=== PATIENT | female | born 1930 | race Caucasian/White ===

== ENCOUNTER 2017-04-15 10:32 | Inpatient (IN) | payer OTHER, MEDICAID ==
[~2017-04-15] VITALS: Ht 162.6 cm; Wt 65.0 kg
[2017-04-15] MEDS ORDERED: SODIUM CHLORIDE 0.9% 1,000 ML IV ONE ×2 (10:35→13:30)
[2017-04-15] MEDS ORDERED: IOVERSOL 350 MG/ML 100 ML VIAL ONE (11:03)
[2017-04-15 12:02] LABS: APPEARANCE,URINE TURBID (CLEAR); GLUCOSE, URINE (UA) NEGATIVE (NEGATIVE); KETONES,URINE NEGATIVE (NEGATIVE); LEUKOCYTE ESTERASE ,URINE LARGE (NEGATIVE); OCCULT BLOOD,URINE SMALL (NEGATIVE); PROTEIN,URINE SEE CONFIRM (NEGATIVE)
[2017-04-15 12:03] LABS: ADD UA MICROSCOPIC YES
[2017-04-15 12:06] LABS: BASOPHILS % (AUTO) 0.1 % (0.0-2.0); EOSINOPHILS % (AUTO) 0 % (1.0-6.0); HEMATOCRIT 29.4 % (36-46); HEMOGLOBIN 9.9 g/dL (12.0-16.0); LYMPHOCYTES # (AUTO) 1.7 K/uL (1.0-4.8); LYMPHOCYTES % (AUTO) 17.4 % (22.0-44.0); MEAN CORPUSCULAR HEMOGLOBIN 29.2 pg (26.0-34.0); MEAN CORPUSCULAR HGB CONC 33.5 G/dL (31.0-37.0); MEAN CORPUSCULAR VOLUME 87 fL (80-100); MONOCYTES # (AUTO) 0.1 K/uL (0.1-1.0); MONOCYTES % (AUTO) 1.3 % (2.0-9.0); NEUTROPHILS % (AUTO) 81.2 % (40.0-70.0); RED BLOOD CELL COUNT(AUTO) 3.37 MIL/uL (4.00-5.20); RED CELL DISTRIBUTION WIDTH 16.3 % (11.5-14.5); WHITE BLOOD COUNT (AUTO) 9.8 K/uL (4.5-11.0)
[2017-04-15 12:13] LABS: INR 1.3 (0.9-1.1); PROTHROMBIN TIME 13.2 SEC (9.4-11.6)
[2017-04-15] MEDS ORDERED: CefTRIAXone 1 GM/DEXTROSE 50 ML IV ONE (12:15)
[2017-04-15 12:23] LABS: ANION GAP 15 mmol/L (8-16); CALCIUM, TOTAL 8.8 mg/dL (8.8-10.5); CARBON DIOXIDE 17 mmol/L (22-29); CHLORIDE 100 mmol/L (98-107); CREATININE 2.51 mg/dL (0.60-1.30); GLOMERULAR FILTR. RATE CALC 18 mL/min (>60); SODIUM SERUM 132 mmol/L (136-145); UREA NITROGEN, BLOOD 42 mg/dL (7-18)
[2017-04-15 12:27] LABS: SULFOSALICYLIC ACID,URINE 3+ (Negative)
[2017-04-15 12:29] LABS: RBC,URINE 0-2 /HPF (0-2)
[2017-04-15 12:30] LABS: WBC,URINE 51-100 /HPF (0-5)
[2017-04-15 12:31] LABS: SQUAMOUS EPITHELIAL CELL,UR Few /LPF (None Seen)
[2017-04-15 12:42] LABS: PLATELET COUNT (AUTO) 88 K/uL (150-450)
[2017-04-15 12:49] LABS: ALANINE AMINOTRANSFERASE 12 U/L (12-78); ALBUMIN 2.4 g/dL (3.4-5.0); ASPARTATE AMINOTRANSFERASE 23 U/L (15-37); BILIRUBIN,TOTAL 0.6 mg/dL (0.1-1.0); CREATINE KINASE MB 1.8 ng/mL (0-5); CREATINE KINASE, TOTAL 163 U/L (26-192); TOTAL PROTEIN, SERUM 6.1 g/dL (6.4-8.2)
[2017-04-15 13:15] LABS: LACTIC ACID 5.5 mmol/L (0.4-2.0)
[2017-04-15 13:58] LABS: CALCIUM, TOTAL 8.4 mg/dL (8.8-10.5); CREATININE 2.33 mg/dL (0.60-1.30); POTASSIUM 4.6 mmol/L (3.5-5.1)
[2017-04-15] MEDS ORDERED: QUET25TA PO (14:17)
[2017-04-15] MEDS ORDERED: GABA-531 PO (14:17)
[2017-04-15] MEDS ORDERED: DIVA250T25 PO (14:17)
[2017-04-15] MEDS ORDERED: MEMA10TA11 PO (14:17)
[2017-04-15] MEDS ORDERED: SITA50 PO (14:17)
[2017-04-15] MEDS ORDERED: ATOR10TA84 PO (14:17)
[2017-04-15 14:27] LABS: REFLEX LACTIC ACID? YES YES
[2017-04-15 16:00] VITALS: BP 92/44
[2017-04-15 20:00] VITALS: BP 124/68
[2017-04-16] VITALS: BP 128/68
[2017-04-16 04:00] VITALS: BP 161/104
[2017-04-16] MEDS: ACETAMINOPHEN 325 MG TABLET PO PRN ×2 (04:34→22:04)
[2017-04-16 05:12] LABS: CALCIUM, TOTAL 8.9 mg/dL (8.8-10.5); CREATININE 1.89 mg/dL (0.60-1.30)
[2017-04-16 05:47] LABS: HEMATOCRIT 32.5 % (36-46); HEMOGLOBIN 10.9 g/dL (12.0-16.0); MEAN CORPUSCULAR HEMOGLOBIN 29.4 pg (26.0-34.0); MEAN CORPUSCULAR HGB CONC 33.7 G/dL (31.0-37.0); MEAN CORPUSCULAR VOLUME 87 fL (80-100); RED BLOOD CELL COUNT(AUTO) 3.72 MIL/uL (4.00-5.20); RED CELL DISTRIBUTION WIDTH 16.4 % (11.5-14.5); WHITE BLOOD COUNT (AUTO) 14.4 K/uL (4.5-11.0)
[2017-04-16 07:42] LABS: PLATELET COUNT (AUTO) 98 K/uL (150-450)
[2017-04-16 07:48] LABS: BAND NEUTROPHILS % (MANUAL) 31 % (1-5); LYMPHOCYTES % (MANUAL) 10 % (22-44); METAMYELOCYTES % 2 % (0-0); TOTAL CELLS COUNTED 100
[2017-04-16 07:49] LABS: RBC MORPHOLOGY COMMENT ABNORMAL R
[2017-04-16 08:00] VITALS: BP 171/87
[2017-04-16] MEDS: SODIUM CHLORIDE 0.9% 1,000 ML IV SCH ×2 (11:17→18:04)
[2017-04-16] MEDS: GABAPENTIN 300 MG CAPSULE PO SCH (11:17)
[2017-04-16] MEDS ORDERED: AMIODARONE HCL 150 MG in DEXTROSE 5%-WATER 97 ML IV ONE (11:30)
[2017-04-16] MEDS ORDERED: AMIODARONE HCL 360 MG in DEXTROSE 5%-WATER 242.8 ML IV ONE (11:30)
[2017-04-16] MEDS ORDERED: DEXTROSE 50%-WATER 25 GM/50 ML SYRINGE IVP PRN (11:45)
[2017-04-16] MEDS: SitaGLIPtin PHOSPHATE 50 MG TABLET PO SCH (11:46)
[2017-04-16] MEDS: ATORVASTATIN CALCIUM 10 MG TABLET PO SCH (11:47)
[2017-04-16] MEDS: DIVALPROEX SODIUM 250 MG DR TABLET PO SCH (11:47)
[2017-04-16 12:00] VITALS: BP 131/79
[2017-04-16] MEDS ORDERED: 0.9% SODIUM CHLORIDE 10 ML SYRINGE IVP PRN (13:30)
[2017-04-16 14:33] LABS: CALCIUM, TOTAL 8.5 mg/dL (8.8-10.5); CREATININE 1.58 mg/dL (0.60-1.30); POTASSIUM 4.6 mmol/L (3.5-5.1)
[2017-04-16 16:00] VITALS: BP 136/74
[2017-04-16 17:17] LABS: GLUCOSE COMMENT 1 Received Meds; GLUCOSE,POINT OF CARE 169 MG/DL (70-110)
[2017-04-16] MEDS: INSULIN ASPART 100 UNITS/ML SQ PRN (17:17)
[2017-04-16] MEDS ORDERED: AMIODARONE HCL 540 MG in DEXTROSE 5%-WATER 239.2 ML IV ONE (18:00)
[2017-04-16 20:00] VITALS: BP 110/74
[2017-04-16] MEDS: MEMANTINE HCL 10 MG TABLET PO SCH (22:04)
[2017-04-16] MEDS: QUEtiapine FUMARATE 25 MG TABLET PO SCH (22:04)
[2017-04-17] VITALS (7 sets, daily range): BP systolic 106–158; BP diastolic 57–96
[2017-04-17] MEDS: SODIUM CHLORIDE 0.9% 1,000 ML IV SCH ×3 (03:06→19:02)
[2017-04-17 05:02] LABS: HEMATOCRIT 29.9 % (36-46); MEAN CORPUSCULAR HEMOGLOBIN 29.3 pg (26.0-34.0); MEAN CORPUSCULAR HGB CONC 33.4 G/dL (31.0-37.0); MEAN CORPUSCULAR VOLUME 88 fL (80-100); PLATELET COUNT (AUTO) 106 K/uL (150-450); RED BLOOD CELL COUNT(AUTO) 3.41 MIL/uL (4.00-5.20); RED CELL DISTRIBUTION WIDTH 16.8 % (11.5-14.5); WHITE BLOOD COUNT (AUTO) 11.1 K/uL (4.5-11.0)
[2017-04-17 05:30] LABS: HEMOGLOBIN A1C 7.4 % (4.5-6.2)
[2017-04-17 05:34] LABS: CHOL/HDL RATIO 4.3 (3.9-5.7)
[2017-04-17 06:42] LABS: GLUCOSE,POINT OF CARE 123 MG/DL (70-110)
[2017-04-17] MEDS: ATORVASTATIN CALCIUM 10 MG TABLET PO SCH (08:52)
[2017-04-17] MEDS: GABAPENTIN 300 MG CAPSULE PO SCH (08:52)
[2017-04-17] MEDS: DIVALPROEX SODIUM 250 MG DR TABLET PO SCH (08:52)
[2017-04-17] MEDS: SitaGLIPtin PHOSPHATE 50 MG TABLET PO SCH (08:52)
[2017-04-17 09:23] LABS: BAND NEUTROPHILS % (MANUAL) 21 % (1-5); LYMPHOCYTES % (MANUAL) 20 % (22-44); RBC MORPHOLOGY COMMENT NORMAL RBC MORPH; TOTAL CELLS COUNTED 100
[2017-04-17] MEDS: LEVOFLOXACIN 250 MG/D5% WATER 50 ML IV SCH (11:22)
[2017-04-17] MEDS: ACETAMINOPHEN 325 MG TABLET PO PRN ×2 (11:23→18:38)
[2017-04-17] MEDS: INSULIN ASPART 100 UNITS/ML SQ PRN ×3 (11:25→22:14)
[2017-04-17] MEDS: AMIODARONE HCL 750 MG in DEXTROSE 5%-WATER 485 ML IV SCH (12:24)
[2017-04-17] MEDS ORDERED: DIGOXIN 250 MCG/ML 2 ML AMP IVP ONE (13:45)
[2017-04-17 18:08] LABS: GLUCOSE COMMENT 1 Received Meds; GLUCOSE,POINT OF CARE 175 MG/DL (70-110)
[2017-04-17 18:08] LABS: GLUCOSE,POINT OF CARE 130 MG/DL (70-110)
[2017-04-17 19:58] LABS: GLUCOSE COMMENT 1 Received Meds; GLUCOSE,POINT OF CARE 214 MG/DL (70-110)
[2017-04-17] MEDS: MEMANTINE HCL 10 MG TABLET PO SCH (22:07)
[2017-04-17] MEDS: QUEtiapine FUMARATE 25 MG TABLET PO SCH (22:07)
[2017-04-18] MEDS: SODIUM CHLORIDE 0.9% 1,000 ML IV SCH ×3 (03:32→20:46)
[2017-04-18 03:52] LABS: GLUCOSE COMMENT 1 Received Meds; GLUCOSE,POINT OF CARE 235 MG/DL (70-110)
[2017-04-18 04:38] VITALS: BP 143/86
[2017-04-18] MEDS: INSULIN ASPART 100 UNITS/ML SQ PRN ×3 (05:56→21:03)
[2017-04-18 06:33] LABS: HEMATOCRIT 30.3 % (36-46); HEMOGLOBIN 10.1 g/dL (12.0-16.0); MEAN CORPUSCULAR HEMOGLOBIN 29.2 pg (26.0-34.0); MEAN CORPUSCULAR HGB CONC 33.2 G/dL (31.0-37.0); MEAN CORPUSCULAR VOLUME 88 fL (80-100); RED BLOOD CELL COUNT(AUTO) 3.45 MIL/uL (4.00-5.20); RED CELL DISTRIBUTION WIDTH 17.2 % (11.5-14.5); WHITE BLOOD COUNT (AUTO) 10.6 K/uL (4.5-11.0)
[2017-04-18 06:49] LABS: CREATININE 1.04 mg/dL (0.60-1.30); MAGNESIUM 1.9 mg/dL (1.80-2.40); POTASSIUM 4.9 mmol/L (3.5-5.1)
[2017-04-18 07:19] VITALS: BP 153/89
[2017-04-18 08:03] LABS: GLUCOSE COMMENT 1 Received Meds; GLUCOSE,POINT OF CARE 169 MG/DL (70-110)
[2017-04-18] MEDS: ASPIRIN 325 MG TABLET PO SCH (08:16)
[2017-04-18] MEDS: ATORVASTATIN CALCIUM 10 MG TABLET PO SCH (08:16)
[2017-04-18] MEDS: SitaGLIPtin PHOSPHATE 50 MG TABLET PO SCH (08:16)
[2017-04-18] MEDS: DIVALPROEX SODIUM 250 MG DR TABLET PO SCH (08:16)
[2017-04-18] MEDS: GABAPENTIN 300 MG CAPSULE PO SCH (08:16)
[2017-04-18 09:55] LABS: PLATELET COUNT (AUTO) 112 K/uL (150-450)
[2017-04-18 09:58] LABS: BAND NEUTROPHILS % (MANUAL) 14 % (1-5); LYMPHOCYTES % (MANUAL) 17 % (22-44); RBC MORPHOLOGY COMMENT ABNORMAL RBC MORPH; TOTAL CELLS COUNTED 100
[2017-04-18] MEDS: LEVOFLOXACIN 250 MG/D5% WATER 50 ML IV SCH (10:46)
[2017-04-18] MEDS: AMIODARONE HCL 750 MG in DEXTROSE 5%-WATER 485 ML IV SCH (11:02)
[2017-04-18 11:22] VITALS: BP 172/99
[2017-04-18 13:35] LABS: GLUCOSE COMMENT 1 Received Meds; GLUCOSE,POINT OF CARE 197 MG/DL (70-110)
[2017-04-18] MEDS ORDERED: DIGOXIN 250 MCG/ML 2 ML AMP IVP ONE (13:45)
[2017-04-18 15:08] VITALS: BP 162/98
[2017-04-18 19:57] VITALS: BP 158/92
[2017-04-18] MEDS: QUEtiapine FUMARATE 25 MG TABLET PO SCH (20:46)
[2017-04-18] MEDS: MEMANTINE HCL 10 MG TABLET PO SCH (20:46)
[2017-04-19] VITALS (7 sets, daily range): BP systolic 148–174; BP diastolic 72–90
[2017-04-19 00:38] LABS: GLUCOSE,POINT OF CARE 148 MG/DL (70-110)
[2017-04-19 00:38] LABS: GLUCOSE,POINT OF CARE 158 MG/DL (70-110)
[2017-04-19] MEDS: SODIUM CHLORIDE 0.9% 1,000 ML IV SCH ×3 (05:08→22:23)
[2017-04-19] MEDS: INSULIN ASPART 100 UNITS/ML SQ PRN ×4 (06:16→20:30)
[2017-04-19] MEDS: ASPIRIN 325 MG TABLET PO SCH (10:08)
[2017-04-19] MEDS: DIVALPROEX SODIUM 250 MG DR TABLET PO SCH (10:09)
[2017-04-19] MEDS: GABAPENTIN 300 MG CAPSULE PO SCH (10:09)
[2017-04-19] MEDS: ATORVASTATIN CALCIUM 10 MG TABLET PO SCH (10:09)
[2017-04-19] MEDS: SitaGLIPtin PHOSPHATE 50 MG TABLET PO SCH (10:09)
[2017-04-19] MEDS: LEVOFLOXACIN 250 MG/D5% WATER 50 ML IV SCH (11:39)
[2017-04-19] MEDS: AMIODARONE HCL 750 MG in DEXTROSE 5%-WATER 485 ML IV SCH (11:49)
[2017-04-19] MEDS: ACETAMINOPHEN 325 MG TABLET PO PRN (13:31)
[2017-04-19] MEDS: AMIODARONE HCL 200 MG TABLET PO SCH ×2 (15:09→20:28)
[2017-04-19] MEDS: MEMANTINE HCL 10 MG TABLET PO SCH (20:27)
[2017-04-19] MEDS: QUEtiapine FUMARATE 25 MG TABLET PO SCH (20:27)
[2017-04-20] VITALS (7 sets, daily range): BP systolic 102–166; BP diastolic 63–94
[2017-04-20 08:55] LABS: ANION GAP 8 mmol/L (8-16); CALCIUM, TOTAL 7.9 mg/dL (8.8-10.5); CARBON DIOXIDE 22 mmol/L (22-29); CHLORIDE 103 mmol/L (98-107); CREATININE 0.78 mg/dL (0.60-1.30); GLOMERULAR FILTR. RATE CALC > 60 mL/min (>60); POTASSIUM 3.6 mmol/L (3.5-5.1); SODIUM SERUM 133 mmol/L (136-145); UREA NITROGEN, BLOOD 16 mg/dL (7-18)
[2017-04-20] MEDS: DIVALPROEX SODIUM 250 MG DR TABLET PO SCH (09:22)
[2017-04-20] MEDS: SitaGLIPtin PHOSPHATE 50 MG TABLET PO SCH (09:22)
[2017-04-20] MEDS: ASPIRIN 325 MG TABLET PO SCH (09:22)
[2017-04-20] MEDS: GABAPENTIN 300 MG CAPSULE PO SCH (09:23)
[2017-04-20] MEDS: ATORVASTATIN CALCIUM 10 MG TABLET PO SCH (09:23)
[2017-04-20] MEDS: AMIODARONE HCL 200 MG TABLET PO SCH ×2 (09:23→20:32)
[2017-04-20] MEDS: AmLODIPine BESYLATE 5 MG TABLET PO SCH (09:23)
[2017-04-20] MEDS: SODIUM CHLORIDE 0.9% 1,000 ML IV SCH (11:35)
[2017-04-20] MEDS: LEVOFLOXACIN 250 MG/D5% WATER 50 ML IV SCH (11:35)
[2017-04-20] MEDS: INSULIN ASPART 100 UNITS/ML SQ PRN ×3 (12:00→20:37)
[2017-04-20] MEDS: ACETAMINOPHEN 325 MG TABLET PO PRN (15:46)
[2017-04-20 19:43] LABS: GLUCOSE COMMENT 1 Received Meds; GLUCOSE,POINT OF CARE 264 MG/DL (70-110)
[2017-04-20 19:43] LABS: GLUCOSE,POINT OF CARE 156 MG/DL (70-110)
[2017-04-20 19:43] LABS: GLUCOSE COMMENT 1 Received Meds; GLUCOSE,POINT OF CARE 144 MG/DL (70-110)
[2017-04-20 19:43] LABS: GLUCOSE COMMENT 1 Received Meds; GLUCOSE,POINT OF CARE 151 MG/DL (70-110)
[2017-04-20 19:43] LABS: GLUCOSE,POINT OF CARE 139 MG/DL (70-110)
[2017-04-20 19:48] LABS: GLUCOSE COMMENT 1 Received Meds; GLUCOSE,POINT OF CARE 174 MG/DL (70-110)
[2017-04-20 19:48] LABS: GLUCOSE COMMENT 1 Received Meds; GLUCOSE,POINT OF CARE 144 MG/DL (70-110)
[2017-04-20] MEDS: QUEtiapine FUMARATE 25 MG TABLET PO SCH (20:32)
[2017-04-20] MEDS: DOCUSATE SODIUM 100 MG CAPSULE PO SCH (20:32)
[2017-04-20] MEDS: MEMANTINE HCL 10 MG TABLET PO SCH (21:38)
[2017-04-21] MEDS: SODIUM CHLORIDE 0.9% 1,000 ML IV SCH (00:27)
[2017-04-21 02:12] LABS: GLUCOSE COMMENT 1 Received Meds; GLUCOSE,POINT OF CARE 157 MG/DL (70-110)
[2017-04-21 04:46] VITALS: BP 127/72
[2017-04-21] MEDS: INSULIN ASPART 100 UNITS/ML SQ PRN (05:57)
[2017-04-21 06:36] LABS: ANION GAP 9 mmol/L (8-16); CARBON DIOXIDE 23 mmol/L (22-29); CHLORIDE 104 mmol/L (98-107); CREATININE 0.88 mg/dL (0.60-1.30); GLOMERULAR FILTR. RATE CALC > 60 mL/min (>60); POTASSIUM 3.4 mmol/L (3.5-5.1); SODIUM SERUM 136 mmol/L (136-145); UREA NITROGEN, BLOOD 17 mg/dL (7-18)
[2017-04-21] MEDS ORDERED: LORazepam 2 MG/ML VIAL ONE (07:28)
[2017-04-21] MEDS ORDERED: LORazepam 2 MG/ML VIAL IVP PRN (07:45)
[2017-04-21] MEDS: DIVALPROEX SODIUM 250 MG DR TABLET PO SCH (07:55)
[2017-04-21] MEDS: ASPIRIN 325 MG TABLET PO SCH (07:55)
[2017-04-21] MEDS: AmLODIPine BESYLATE 5 MG TABLET PO SCH (07:55)
[2017-04-21] MEDS: AMIODARONE HCL 200 MG TABLET PO SCH ×2 (07:55→21:00)
[2017-04-21] MEDS: DOCUSATE SODIUM 100 MG CAPSULE PO SCH ×2 (07:55→21:00)
[2017-04-21] MEDS: GABAPENTIN 300 MG CAPSULE PO SCH (07:55)
[2017-04-21] MEDS: ATORVASTATIN CALCIUM 10 MG TABLET PO SCH (07:55)
[2017-04-21] MEDS: SitaGLIPtin PHOSPHATE 50 MG TABLET PO SCH (07:55)
[2017-04-21 10:56] VITALS: BP 143/73
[2017-04-21] MEDS: LEVOFLOXACIN 250 MG/D5% WATER 50 ML IV SCH (11:47)
[2017-04-21 11:53] LABS: GLUCOSE,POINT OF CARE 171 MG/DL (70-110)
[2017-04-21 15:45] VITALS: BP 174/87
[2017-04-21 19:34] LABS: GLUCOSE,POINT OF CARE 104 MG/DL (70-110)
[2017-04-21 20:46] VITALS: BP 151/71
[2017-04-21] MEDS: QUEtiapine FUMARATE 25 MG TABLET PO SCH (21:00)
[2017-04-21] MEDS: MEMANTINE HCL 10 MG TABLET PO SCH (21:00)
[2017-04-21 23:56] VITALS: BP 153/87
[2017-04-22] MEDS: SODIUM CHLORIDE 0.9% 1,000 ML IV SCH ×3 (01:15→13:40)
[2017-04-22 04:43] VITALS: BP 153/81
[2017-04-22 06:44] LABS: EOSINOPHILS % (AUTO) 1.2 % (1.0-6.0); HEMATOCRIT 28.9 % (36-46); HEMOGLOBIN 9.7 g/dL (12.0-16.0); LYMPHOCYTES # (AUTO) 1.1 K/uL (1.0-4.8); LYMPHOCYTES % (AUTO) 9.1 % (22.0-44.0); MEAN CORPUSCULAR HEMOGLOBIN 29.5 pg (26.0-34.0); MEAN CORPUSCULAR HGB CONC 33.6 G/dL (31.0-37.0); MEAN CORPUSCULAR VOLUME 88 fL (80-100); MONOCYTES % (AUTO) 8.1 % (2.0-9.0); NEUTROPHILS # (AUTO) 9.9 K/uL (1.8-7.7); NEUTROPHILS % (AUTO) 81.6 % (40.0-70.0); PLATELET COUNT (AUTO) 175 K/uL (150-450); RED BLOOD CELL COUNT(AUTO) 3.29 MIL/uL (4.00-5.20); RED CELL DISTRIBUTION WIDTH 16.9 % (11.5-14.5); WHITE BLOOD COUNT (AUTO) 12.2 K/uL (4.5-11.0)
[2017-04-22 06:53] LABS: GLUCOSE,POINT OF CARE 124 MG/DL (70-110)
[2017-04-22 06:53] LABS: GLUCOSE,POINT OF CARE 132 MG/DL (70-110)
[2017-04-22 06:53] LABS: GLUCOSE,POINT OF CARE 118 MG/DL (70-110)
[2017-04-22 07:06] LABS: ANION GAP 8 mmol/L (8-16); CALCIUM, TOTAL 8.1 mg/dL (8.8-10.5); CARBON DIOXIDE 25 mmol/L (22-29); CHLORIDE 103 mmol/L (98-107); CREATININE 0.77 mg/dL (0.60-1.30); GLOMERULAR FILTR. RATE CALC > 60 mL/min (>60); POTASSIUM 3.6 mmol/L (3.5-5.1); SODIUM SERUM 136 mmol/L (136-145); UREA NITROGEN, BLOOD 14 mg/dL (7-18)
[2017-04-22 07:45] VITALS: BP 154/92
[2017-04-22] MEDS: SitaGLIPtin PHOSPHATE 50 MG TABLET PO SCH (08:13)
[2017-04-22] MEDS: AmLODIPine BESYLATE 5 MG TABLET PO SCH (08:13)
[2017-04-22] MEDS: GABAPENTIN 300 MG CAPSULE PO SCH (08:13)
[2017-04-22] MEDS: DIVALPROEX SODIUM 250 MG DR TABLET PO SCH (08:13)
[2017-04-22] MEDS: AMIODARONE HCL 200 MG TABLET PO SCH ×2 (08:13→20:14)
[2017-04-22] MEDS: ATORVASTATIN CALCIUM 10 MG TABLET PO SCH (08:14)
[2017-04-22] MEDS: ASPIRIN 325 MG TABLET PO SCH (08:14)
[2017-04-22] MEDS: DOCUSATE SODIUM 100 MG CAPSULE PO SCH ×2 (08:14→20:14)
[2017-04-22] MEDS: LEVOFLOXACIN 250 MG/D5% WATER 50 ML IV SCH (11:00)
[2017-04-22] MEDS: INSULIN ASPART 100 UNITS/ML SQ PRN ×3 (11:58→20:32)
[2017-04-22 12:16] VITALS: BP 146/97
[2017-04-22] MEDS ORDERED: MAGNESIUM OXIDE 400 MG TABLET PO ONE (15:15)
[2017-04-22 15:28] VITALS: BP 153/79
[2017-04-22] MEDS: MAGNESIUM OXIDE 400 MG TABLET PO SCH ×2 (15:55→20:14)
[2017-04-22] MEDS: ACETAMINOPHEN 325 MG TABLET PO PRN (16:23)
[2017-04-22 20:08] VITALS: BP 123/66
[2017-04-22] MEDS: MEMANTINE HCL 10 MG TABLET PO SCH (20:14)
[2017-04-22] MEDS: QUEtiapine FUMARATE 25 MG TABLET PO SCH (20:14)
[2017-04-22 23:28] LABS: GLUCOSE COMMENT 1 Received Meds; GLUCOSE,POINT OF CARE 166 MG/DL (70-110)
[2017-04-22 23:28] LABS: GLUCOSE COMMENT 1 Received Meds; GLUCOSE,POINT OF CARE 148 MG/DL (70-110)
[2017-04-22 23:28] LABS: GLUCOSE COMMENT 1 Received Meds; GLUCOSE,POINT OF CARE 193 MG/DL (70-110)
[2017-04-23 00:05] VITALS: BP 139/78
[2017-04-23] MEDS: SODIUM CHLORIDE 0.9% 1,000 ML IV SCH (02:10)
[2017-04-23 05:41] VITALS: BP 155/70
[2017-04-23 07:20] VITALS: BP 145/97
[2017-04-23 07:29] VITALS: BP 163/84
[2017-04-23] MEDS: AMIODARONE HCL 200 MG TABLET PO SCH (08:09)
[2017-04-23] MEDS: GABAPENTIN 300 MG CAPSULE PO SCH (08:09)
[2017-04-23] MEDS: ATORVASTATIN CALCIUM 10 MG TABLET PO SCH (08:09)
[2017-04-23] MEDS: MAGNESIUM OXIDE 400 MG TABLET PO SCH ×2 (08:09→13:00)
[2017-04-23] MEDS: AmLODIPine BESYLATE 5 MG TABLET PO SCH (08:09)
[2017-04-23] MEDS: DOCUSATE SODIUM 100 MG CAPSULE PO SCH (08:09)
[2017-04-23] MEDS: ASPIRIN 325 MG TABLET PO SCH (08:10)
[2017-04-23] MEDS: DIVALPROEX SODIUM 250 MG DR TABLET PO SCH (08:11)
[2017-04-23] MEDS: SitaGLIPtin PHOSPHATE 50 MG TABLET PO SCH (08:11)
[2017-04-23] MEDS: LEVOFLOXACIN 250 MG/D5% WATER 50 ML IV SCH (11:00)
[2017-04-23 11:38] VITALS: BP 131/85
[2017-04-24 21:17] LABS: GLUCOSE,POINT OF CARE 121 MG/DL (70-110)
[2017-04-24 21:17] LABS: GLUCOSE,POINT OF CARE 131 MG/DL (70-110)
== END 2017-04-23 14:15 | disposition hospice, home (50) | DRG 871 ==
LOC: EMS 10:34 → ICU 14:56 → 5S 04-17 15:20
PROVIDERS: ADMIT Family Medicine; ATTEND Family Medicine
DX: A41.9 Sepsis, unspecified organism (principal); G93.40 Encephalopathy, unspecified; I63.9 Cerebral infarction, unspecified; N17.0 Acute kidney failure with tubular necrosis; E43 Unspecified severe protein-calorie malnutrition; D69.2 Other nonthrombocytopenic purpura; J18.9 Pneumonia, unspecified organism; D69.6 Thrombocytopenia, unspecified; E87.1 Hypo-osmolality and hyponatremia; G81.91 Hemiplegia, unspecified affecting right dominant side; N39.0 Urinary tract infection, site not specified; E11.9 Type 2 diabetes mellitus without complications; E78.5 Hyperlipidemia, unspecified; E86.0 Dehydration; F03.90 Unspecified dementia, unspecified severity, without behavioral disturbance, psychotic disturbance, mood disturbance, and anxiety; G40.909 Epilepsy, unspecified, not intractable, without status epilepticus; I10 Essential (primary) hypertension; I48.91 Unspecified atrial fibrillation; I65.21 Occlusion and stenosis of right carotid artery; Z51.5 Encounter for palliative care; I70.0 Atherosclerosis of aorta; Z66 Do not resuscitate; I35.2 Nonrheumatic aortic (valve) stenosis with insufficiency; Z88.0 Allergy status to penicillin; Z88.1 Allergy status to other antibiotic agents; Z68.24 Body mass index [BMI] 24.0-24.9, adult
CPT/HCPCS: 70450; 70496; 70551; 82962; 83036; 83605; 83735; 87040; 87081; 87086; 92526; 92610; 93005; 93306; 93880; 96361; 96365; 97162; 97167; 97530; 99291; J0282; J0696; J1160; J1956; J2060; J7030; J7060